=== PATIENT | female | born 1960 | race Caucasian/White ===

== ENCOUNTER 2016-06-03 11:56 | Emergency (ER) | payer OTHER ==
--- NOTE | ~2016-06-03 | CR170 ---
[facility] A Service of [facility] [place] RADIOLOGY TEXT RESULTS PATIENT: VIDHYA BECERRA LOCATION: [facility] : 62 UNIT #: [id number] AGE: [address]: Sharlene Collado APRN SEX: F ORDER DR: [id number] [facility] [address] [place], [place] [address] [id number] E MR#: [id number] Acc #: [id number] NAME: VIDHYA BECERRA : 1960 SEX: F STUDY DATE/TIME: 06/03/2016 10:59 UNIT: [facility] ROOM: STUDY DESCRIPTION: CR Knee 2 Views Rt Attending Physician: Sharlene Collado A.P.R.N. Ordering Physician: Ed Keo Caba M.D. [facility] REPORT This report is preliminary unless electronic signature is present EXAM Right knee HISTORY Knee pain swelling and edema after stumbling 3-4 days ago. TECHNIQUE 2 views of the knee were obtained. FINDINGS 2 views of the knee show a large joint effusion. There is no evidence of fracture. Joint spaces are preserved. Small osteophytes are seen at the upper and lower patellar poles and there is extensive chondrocalcinosis of the meniscus both medially and laterally. No acute bony abnormalities are seen. 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 Mild degenerative changes at the patellofemoral joint. Large joint effusion. No acute bony abnormalities are seen. Dictated by... Alcides Saenz M.D. THIS IS AN ELECTRONICALLY VERIFIED REPORT Alcides Saenz M.D. at 06/06/2016 9:46 AM LESLIE/ana TD: 06/03/2016 22:24 JOB #: [id number] MEDICAL IMAGING REPORT Page 1 of 1 COPY
--- NOTE | ~2016-06-03 | CR151 ---
[facility] A Service of [facility] RADIOLOGY TEXT RESULTS PATIENT: VIDHYA BECERRA LOCATION: CFT[facility] : 62 UNIT #: [id number] AGE: [address]: Sharlene Collado APRN SEX: F ORDER DR: [id number] [facility] [address] [place], [place] [address] [id number] E MR#: [id number] Acc #: [id number] NAME: VIDHYA BECERRA : 1960 SEX: F STUDY DATE/TIME: 06/03/2016 10:57 UNIT: [place] ROOM: STUDY DESCRIPTION: CR Hip Min 2 Views Rt Attending Physician: Sharlene Collado A.P.R.N. Ordering Physician: Ed Doctor [id number] [facility] Primary Care Physician: [facility] MEDICAL IMAGING REPORT This report is preliminary unless electronic signature is present EXAM Right hip HISTORY Hip pain and swelling after stumbling 3-4 days ago. TECHNIQUE 2 views hip were obtained. FINDINGS 2 views of the hip show multiple osteochondral defects and subchondral cysts in the femoral head and acetabulum with mild joint space narrowing and small osteophytes. There is no evidence of fracture bone destruction or loose osteochondral fragment. The acetabulum is intact. The remainder of the bony pelvis shows no acute findings. IMPRESSION Chronic osteochondral defects are seen in the femoral neck and head as well as the acetabulum. Moderate degenerative change. No acute findings. Dictated by... Alcides Saenz M.D. THIS IS AN ELECTRONICALLY VERIFIED REPORT Alcides Saenz M.D. at 06/06/2016 9:46 AM LESLIE/ana TD: 06/03/2016 22:20 JOB #: [id number] MEDICAL IMAGING REPORT Page 1 of 1 COPY
[~2016-06-03 11:56] MED LIST: AEROBID7 GM; ALBUTEROL17 GM INH; BACTRIM DS TABL1 TAB PO; DOXYCYCLINE PO; HYCODAN PO; INVEGA; KEFLEX PO; LISINOPRIL10 MG PO; LORTAB 5/500 TA1 TA2 PO; MEDROL PO; NEURONTIN PO; NO MEDICATIONS; NORCO 5/325 TAB1 TAB PO; PROPRANOLOL PO; TYLENOL325 M1 PO; ZOCOR PO
== END 2016-06-03 12:30 | disposition home or self-care (01) ==
LOC: CFTX 11:56
DX: M25.461 Effusion, right knee (principal); J44.9 Chronic obstructive pulmonary disease, unspecified; I10 Essential (primary) hypertension; N28.9 Disorder of kidney and ureter, unspecified; E04.9 Nontoxic goiter, unspecified; F17.210 Nicotine dependence, cigarettes, uncomplicated; Z90.49 Acquired absence of other specified parts of digestive tract; Z90.710 Acquired absence of both cervix and uterus; Z98.890 Other specified postprocedural states; Z88.0 Allergy status to penicillin; Z88.8 Allergy status to other drugs, medicaments and biological substances
CPT/HCPCS: 29530; 73502; 73560; 99284

== ENCOUNTER → 2016-06-19 | Outpatient (CLI) | payer OTHER ==
--- NOTE | ~2016-06-19 | MR104 ---
[facility] A Service of [facility] RADIOLOGY TEXT RESULTS PATIENT: VIDHYA BECERRA [facility] UN[facility] #: [id number] AGE: [address]: Zaid Hare MD SEX: F ORDER DR: [id number] [facility] [address] [place], [place] [address] [id number] O MR#: [id number] Acc #: [id number] NAME: VIDHYA BECERRA : 1960 SEX: F STUDY DATE/TIME: 06/19/2016 15:03 UNIT: [facility] ROOM: STUDY DESCRIPTION: MR Knee Wo Contrast Rt Attending Physician: Zaid Hare M.D. Referring Physician: Zaid Hare M.D. Ordering Physician: Zaid Hare M.D. MRI CENTER REPORT This report is preliminary unless electronic signature is present. EXAM Right knee MRI without contrast 06/19/2016 HISTORY 55-year-old female with right knee pain and swelling after tripping over a dog 2 weeks ago. No prior right knee surgery. COMPARISON STUDIES Right knee x-rays 06/03/2016. TECHNIQUE Routine unenhanced multiplanar, multisequence high-field MR imaging of the right knee was performed. FINDINGS Examination is slightly limited by motion artifact. There is intrameniscal signal abnormality in the posterior horn and body segment of the medial meniscus which questionably contacts the peripheral inferior articular surface of the junction of the posterior horn/body medial meniscus. This is an equivocal finding and small undersurface tear cannot be excluded. There is some blunting of the free margin of the body segment of the medial meniscus suggesting degenerative fraying. Mild degeneration of the free margin body segment lateral meniscus is also noted without evidence of a discrete lateral meniscus tear. Cruciate and collateral ligaments are intact. Extensor mechanism is intact. [id number] joint effusion. No popliteal cyst. 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 Small focus of [facility] A Service of [facility] RADIOLOGY TEXT RESULTS PATIENT: VIDHYA BECERRA LOCATION: [facility] : 62 UNIT #: [id number] AGE: [address]: Zaid Hare MD SEX: F ORDER DR: moderate to high-grade chondromalacia of the inferior medial femoral trochlea. Lateral compartment articular cartilage is intact. Low-grade chondral thinning noted along weightbearing surfaces of the medial compartment. Remainder of the bone marrow signal is within expected limits. Visualized musculature is unremarkable. IMPRESSION 1. Mildly motion-limited exam. 2. Intrameniscal signal abnormality in the posterior horn and body segment of the medial meniscus which questionably contacts the peripheral inferior articular surface at the junction of the posterior horn/body. This finding is equivocal and a small undersurface tear cannot be completely excluded. There is some mild blunting of the free margin of the body segment lateral meniscus suggesting degenerative fraying. 3. Mild degeneration of the free margin body segment lateral meniscus without evidence of a discrete tear. 4. No acute ligament injury. 5. High-grade chondromalacia of the superior aspect of the medial patellar facet with mild subchondral marrow edema. Small focus of moderate to high-grade chondromalacia inferior medial femoral trochlea. 6. Generalized low-grade chondral thinning throughout the medial compartment. 7. Vjnhs-xj-ywszykkv joint effusion. Dictated by... Brent Sears M.D. THIS IS AN ELECTRONICALLY VERIFIED REPORT Brent Sears M.D. at 06/21/2016 4:11 PM MAYA/nati TD: 06/20/2016 23:05 JOB #: [id number] MRI CENTER REPORT Page 1 of 1 COPY
== END | disposition home or self-care (01) ==
LOC: CMRI 14:19
DX: M25.561 Pain in right knee (principal); M23.8X1 Other internal derangements of right knee; M22.41 Chondromalacia patellae, right knee; M25.461 Effusion, right knee
CPT/HCPCS: 73721